=== PATIENT | male | born 2000 | race Caucasian/White ===

== ENCOUNTER 2024-12-09 19:44 | Emergency (ER) | payer SELFPAY ==
[~2024-12-09] VITALS: Ht 175.3 cm; Wt 89.0 kg
[2024-12-09 19:47] VITALS: PULSE 106; O2SAT 100
[2024-12-09 19:48] VITALS: BP 134/68; RESP 18; TEMP 36.8; O2SAT 98
[2024-12-09] MEDS ORDERED: MAGNESIUM/ALUMINUM HYDROXIDE/SIMETHICONE 30ML UDC PO ONE (20:30)
[2024-12-09] MEDS ORDERED: FAMOTIDINE 20MG TABLET PO ONE (20:30)
== END 2024-12-09 21:18 | disposition left against medical advice (07) ==
LOC: ER 19:44
DX: R10.9 Unspecified abdominal pain (principal); K21.9 Gastro-esophageal reflux disease without esophagitis
CPT/HCPCS: 99281